=== PATIENT | male | born 1965 | race Caucasian/White ===

== ENCOUNTER 2016-05-20 16:32 | Emergency (ER) | payer OTHER ==
[~2016-05-20] VITALS: Ht 182.9 cm; Wt 143.0 kg
[2016-05-20 16:38] VITALS: TEMP 36.6; Ht 182.9 cm; Wt 143.0 kg
[2016-05-20] MEDS ORDERED: SODIUM CHLORIDE 0.9% 1000ML 1,000 ML IV STA (16:49)
[2016-05-20] MEDS ORDERED: PANT40TA PO (16:52)
[2016-05-20] MEDS ORDERED: LSN20 PO (16:52)
[2016-05-20] MEDS ORDERED: MULT-506 PO (16:52)
[2016-05-20 17:15] LABS: BASO % 0.6 %; BASO ABS # 0.06 K/uL (0-0.2); COMPLETE YES; EOS % 4.4 %; HEMATOCRIT 46.4 % (42-52); IG% 0.3 %; LYMPH % 20.6 %; LYMPH ABS # 1.97 K/uL (1.2-3.4); MEAN CELL VOLUME 90.1 fL (80-100); MEAN CORPUSCULAR HEMOGLOBIN 30.3 pg (25-34); MEAN CORPUSCULAR HGB CONC 33.6 g/dl (32-36); MEAN PLATELET VOLUME 10.8 fL (7.4-10.4); MONO % 12.9 %; NEUT % 61.2 %; PLATELET COUNT 214 K/uL (130-400); RED BLOOD COUNT 5.15 M/uL (4.7-6.1); WHITE BLOOD COUNT 9.54 K/uL (4.8-10.8)
[2016-05-20 17:32] LABS: ALT/SGPT 25 U/L (12-78); AST/SGOT 12 U/L (15-37); BLOOD UREA NITROGEN 18 mg/dl (7-18); BUN/CREATININE RATIO 18.8 (10-20); CALCIUM 8.8 mg/dl (8.5-10.1); CARBON DIOXIDE 27 mmol/L (21-32); CHLORIDE 109 mmol/L (98-107); CREATININE 0.95 mg/dl (0.60-1.40); GLUCOSE 108 mg/dl (70-99); POTASSIUM 4.3 mmol/L (3.5-5.1); SODIUM 142 mmol/L (136-145)
[2016-05-20 17:35] LABS: ALKALINE PHOSPHATASE 67 U/L (45-117)
--- NOTE | 2016-05-20 17:38 | DIAGNOSTIC IMAGING REPORT ---
CT OF THE ABDOMEN AND PELVIS WITHOUT CONTRAST CLINICAL HISTORY: Left lower quadrant pain. Evaluate for acute diverticulitis. COMPARISON STUDY: No previous studies for comparison. TECHNIQUE: Axial images of the abdomen and pelvis were obtained without IV contrast. Images were reviewed in the axial, sagittal, and coronal planes. FINDINGS: No pneumatosis, free air or portal venous gas is present. Evaluation of the abdomen and pelvis is suboptimal on this unenhanced exam. Unenhanced images of liver, spleen, adrenal glands and pancreas are unremarkable. There is no peripancreatic or pericholecystic infiltration. No renal, ureteral or bladder calculi are identified although the distal ureters are obscured by streak artifact from bilateral hip arthroplasties. There is no evidence for a bowel obstruction. There is left colon diverticulosis without evidence of acute diverticulitis. The appendix is normal. There is no lymphadenopathy or ascites. No suspicious skeletal lesions are identified. IMPRESSION: 1. No acute process within the abdomen or pelvis on unenhanced exam. 2. Colonic diverticulosis without evidence of acute diverticulitis. 3. Normal appendix. 4. No urinary calculi or hydronephrosis although the distal ureters are obscured by streak artifact from the bilateral hip arthroplasties. 5. Mild to moderate amount of stool within the rectum. Electronically signed by: Jacky Wilson M.D. 05/20/2016 5:37 PM Dictated Date/Time: 05/20/2016 5:28 PM
[2016-05-20] MEDS ORDERED: KETOROLAC TROMETHAMINE 30 MG/ML VIAL IV STA (18:11)
--- NOTE | 2016-05-20 18:13 | EMERGENCY ROOM VISIT NOTE ---
History Report prepared by Dinh: Dorota Hunt Under the Supervision of: Dr. Miky Lim D.O. First contact with patient: 16:43 Chief Complaint: OTHER COMPLAINT Stated Complaint: DVERTICULITUS History of Present Illness The patient is a 51 year old male who presents to the Emergency Room with complaints of constant LLQ abdominal pain since 0430 this morning. The patient reports a past medical history of diverticulitis. He states that he has had diverticulitis 3-4 times in the past 10 years and states that his current pain feels like these previous episodes. He notes "hot stool as if I ate hot wings." He rates his pain as a 10/10 in severity. The patient denies nausea, vomiting, diarrhea, and back pain. He states that he is currently in [place] visiting his son and his PCP is in [place]. Source of History: patient Onset: 429 this morning Position: abdomen (LLQ) Symptom Intensity: 10/10 Timing: constant Associated Symptoms: No back pain, No diarrhea, No nausea, No vomiting Note: Pt reports "hot stool." Review of Systems See HPI for pertinent positives & negatives. A total of 10 systems reviewed and were otherwise negative. Past Medical & Surgical Medical Problems: (1) Hypertension Family History No pertinent history stated. Social History Smoking Status: Never Smoker Current/Historical Medications Scheduled Lisinopril (Lisinopril), 20 MG PO DAILY Multivitamin (Multivitamin), 1 TAB PO DAILY Pantoprazole (Protonix), 40 MG PO DAILY Allergies Coded Allergies: Sumatriptan (Verified Allergy, Severe, SHORTNESS OF BREATH, 05/20/16) Tramadol (Verified Allergy, Intermediate, "SEVERE ITCHING", 05/20/16) Physical Exam Vital Signs Date Time Temp Pulse Resp B/P Pulse Ox O2 Delivery O2 Flow Rate FiO2 05/20/16 18:26 91 22 143/98 98 05/20/16 16:38 36.6 80 20 131/66 96 Room Air Physical Exam CONSTITUTIONAL/VITAL SIGNS: Reviewed / noted above. GENERAL: Non-toxic in appearance. INTEGUMENTARY: Warm, dry, and [place]. HEAD: Normocephalic. EYES: without scleral icterus or trauma. ENT/OROPHARYNX: clear and moist. LYMPHADENOPATHY/NECK: Is supple without lymphadenopathy or meningismus. RESPIRATORY: Lungs clear and equal. CARDIOVASCULAR: Regular rate and rhythm. GI/ABDOMEN: Soft and nontender. No organomegaly or pulsatile mass. No rebound or guarding. Normal bowel sounds. EXTREMITIES: Warm and well perfused. BACK: No CVA tenderness. NEUROLOGICAL: Intact without focal deficits. PSYCHIATRIC: normal affect. MUSCULOSKELETAL: Normally developed with good muscle tone. Medical Decision & Procedures ER Provider Diagnostic Interpretation: Radiology results as stated below per my review and radiologist interpretation: CT OF THE ABDOMEN AND PELVIS WITHOUT CONTRAST CLINICAL HISTORY: Left lower quadrant pain. Evaluate for acute diverticulitis. COMPARISON STUDY: No previous studies for comparison. TECHNIQUE: Axial images of the abdomen and pelvis were obtained without IV contrast. Images were reviewed in the axial, sagittal, and coronal planes. FINDINGS: No pneumatosis, free air or portal venous gas is present. Evaluation of the abdomen and pelvis is suboptimal on this unenhanced exam. Unenhanced images of liver, spleen, adrenal glands and pancreas are unremarkable. There is no peripancreatic or pericholecystic infiltration. No renal, ureteral or bladder calculi are identified although the distal ureters are obscured by streak artifact from bilateral hip arthroplasties. There is no evidence for a bowel obstruction. There is left colon diverticulosis without evidence of acute diverticulitis. The appendix is normal. There is no lymphadenopathy or ascites. No suspicious skeletal lesions are identified. IMPRESSION: 1. No acute process within the abdomen or pelvis on unenhanced exam. 2. Colonic diverticulosis without evidence of acute diverticulitis. 3. Normal appendix. 4. No urinary calculi or hydronephrosis although the distal ureters are obscured by streak artifact from the bilateral hip arthroplasties. 5. Mild to moderate amount of stool within the rectum. Electronically signed by: Jacky Wilson M.D. 05/20/2016 5:37 PM Dictated Date/Time: 05/20/2016 5:28 PM Laboratory Results 05/20/16 17:05 Red Blood Count 5.15, Mean Corpuscular Volume 90.1, Mean Corpuscular Hemoglobin 30.3, Mean Corpuscular Hemoglobin Concent 33.6, Mean Platelet Volume 10.8, Neutrophils (%) (Auto) 61.2, Lymphocytes (%) (Auto) 20.6, Monocytes (%) (Auto) 12.9, Eosinophils (%) (Auto) 4.4, Basophils (%) (Auto) 0.6, Neutrophils # (Auto ) 5.83, Lymphocytes # (Auto) 1.97, Monocytes # (Auto) 1.23, Eosinophils # (Auto ) 0.42, Basophils # (Auto) 0.06 05/20/16 17:05 Test 05/20/16 17:05 White Blood Count 9.54 K/uL (4.8-10.8) Red Blood Count 5.15 M/uL (4.7-6.1) Hemoglobin 15.6 g/dL (14.0-18.0) Hematocrit 46.4 % (42-52) Mean Corpuscular Volume 90.1 fL (80-100) Mean Corpuscular Hemoglobin 30.3 pg (25-34) Mean Corpuscular Hemoglobin Concent 33.6 g/dl (32-36) Platelet Count 214 K/uL (130-400) Mean Platelet Volume 10.8 fL (7.4-10.4) Neutrophils (%) (Auto) 61.2 % Lymphocytes (%) (Auto) 20.6 % Monocytes (%) (Auto) 12.9 % Eosinophils (%) (Auto) 4.4 % Basophils (%) (Auto) 0.6 % Neutrophils # (Auto) 5.83 K/uL (1.4-6.5) Lymphocytes # (Auto) 1.97 K/uL (1.2-3.4) Monocytes # (Auto) 1.23 K/uL (0.11-0.59) Eosinophils # (Auto) 0.42 K/uL (0-0.5) Basophils # (Auto) 0.06 K/uL (0-0.2) RDW Standard Deviation 46.9 fL (36.4-46.3) RDW Coefficient of Variation 14.2 % (11.5-14.5) Immature Granulocyte % (Auto) 0.3 % Immature Granulocyte # (Auto) 0.03 K/uL (0.00-0.02) Anion Gap 6.0 mmol/L (3-11) Est Creatinine Clear Calc Drug Dose 135.0 ml/min Estimated GFR () 107.0 Estimated GFR (Non- 92.3 BUN/Creatinine Ratio 18.8 (10-20) Calcium Level 8.8 mg/dl (8.5-10.1) Total Bilirubin < 0.1 mg/dl (0.2-1) Direct Bilirubin < 0.1 mg/dl (0-0.2) Aspartate Amino Transf (AST/SGOT) 12 U/L (15-37) Alanine Aminotransferase (ALT/SGPT) 25 U/L (12-78) Alkaline Phosphatase 67 U/L (45-117) Total Protein 7.1 gm/dl (6.4-8.2) Albumin 3.6 gm/dl (3.4-5.0) Lipase 117 U/L (73-393) Laboratory results as stated above per my review. Medications Administered Medications (Trade) Dose Ordered Sig/Andres Route Start Time Stop Time Status Last Admin Dose Admin Sodium Chloride (Nss 1000ml) 1,000 ml @ 999 mls/hr Q1H1M STAT IV 05/20/16 16:49 05/20/16 17:49 DC 05/20/16 16:49 999 MLS/HR ED Course 1644: Previous medical records were reviewed. The patient was evaluated in room C8. A complete history and physical examination was performed. 1649: NSS 1000 ml @ 999 mls/hr IV 181: Toradol 30 mg IV. 1813:I reassessed the patient at this time. He is feeling better and resting comfortably. I discussed the results and treatment plan with the patient. I answered all pertaining questions that he had. He expressed understanding and verbalized agreement. The patient will be discharged home. Medical Decision Differential considered: pancreatitis, hepatitis, or acute cholecystitis, AAA, UTI, pyelonephritis, kidney stones, appendicitis, diverticulitis, shingles, bowel obstruction mesenteric ischemia, intussusception,hernia, or testicular torsion. This is a 51-year-old male who presents to the ED with a chief complaint of left lower quadrant abdominal pain. He states that he has had a since this morning. He reports 3-4 prior episodes of diverticulitis. He denies any associated symptoms such as nausea or vomiting, diarrhea, fevers, chills or urinary symptoms. His vital signs are normal. His physical exam reveals an obese male. There is no obvious abdominal tenderness on exam. CT scan read and pelvis did not show acute process. There is moderate stool in the rectum. CBC and complete metabolic panel were also unremarkable. The patient was told results the test. He was treated with IV fluids and IV Toradol. He is felt to be stable for discharge. Impression Primary Impression: LLQ abdominal pain Additional Impression: Constipation Scribe Attestation The scribe's documentation has been prepared under my direction and personally reviewed by me in its entirety. I confirm that the note above accurately reflects all work, treatment, procedures, and medical decision making performed by me. Departure Information Dispostion Home / Self-Care Referrals Aden Samaniego (PCP) Forms Call Back Authorization, HOME CARE DOCUMENTATION FORM, IMPORTANT VISIT INFORMATION Patient Instructions Abdominal Pain, My [facility] Additional Instructions Follow-up with your doctor for further care and evaluation in 1-2 days. Return to the emergency department for worsening or new symptoms or any concerns. You have been examined and treated today on an emergency basis only. This is not a substitute for, or an effort to provide, complete comprehensive medical care. It is impossible to recognize and treat all injuries or illnesses in a single emergency department visit. It is therefore important that you follow up closely with your doctor. Call as soon as possible for an appointment. Problem Qualifiers
[2016-05-20 18:26] VITALS: BP 143/98; PULSE 91; O2SAT 98
== END 2016-05-20 18:27 | disposition home or self-care (01) ==
LOC: C.EDB 16:35 → C.EDC 18:27
DX: K59.00 Constipation, unspecified (principal); I10 Essential (primary) hypertension; Z79.899 Other long term (current) drug therapy; E66.9 Obesity, unspecified; Z68.41 Body mass index [BMI] 40.0-44.9, adult